=== PATIENT | female | born 1965 | race African-American/Black ===

== ENCOUNTER 2020-12-14 04:31 | Day surgery (SDC) | payer OTHER ==
[2020-12-13 09:01] VITALS: BMI 29.6
[2020-12-14] MEDS ORDERED: ceFAZolin SODIUM 1 GM VIAL IVPB ONE (12:51)
[2020-12-14] MEDS ORDERED: MIDAZOLAM HCL 2 MG/2 ML SINGLE DOSE VIAL ONE (14:31)
[2020-12-14] MEDS ORDERED: PROPOFOL 20 ML ONE (14:31)
[2020-12-14] MEDS ORDERED: oxyCODONE HCL 5 MG TABLET PO PRN ×2 (15:16)
[2020-12-14] MEDS ORDERED: LACTATED RINGERS SOLUTION 1,000 ML IV SCH (15:30)
[2020-12-14] MEDS: ONDANSETRON 4 MG/2 ML VIAL IVPUSH PRN ×2 (18:02→19:56)
[2020-12-14] MEDS ORDERED: ONDANSETRON 4 MG/2 ML VIAL ONE ×2 (18:03→19:57)
[2020-12-14 19:26] VITALS: TEMP 97
[2020-12-14 20:33] VITALS: BP 138/82; PULSE 66
== END 2020-12-14 20:45 | disposition home or self-care (01) ==
LOC: JASU-SURG 04:31
PROVIDERS: ATTEND Obstetrics & Gynecology
PROC: 0UB98ZZ Excision of Uterus, Via Natural or Artificial Opening Endoscopic (ICD-10-PCS; principal; 2020-12-14 14:00)
PROC: 0UDB7ZX Extraction of Endometrium, Via Natural or Artificial Opening, Diagnostic (ICD-10-PCS; 2020-12-14 14:00)
PROC: 0UJD8ZZ Inspection of Uterus and Cervix, Via Natural or Artificial Opening Endoscopic (ICD-10-PCS; 2020-12-14 14:00)
DX: N92.0 Excessive and frequent menstruation with regular cycle (principal); D25.9 Leiomyoma of uterus, unspecified
CPT/HCPCS: 81025; 94760